=== PATIENT | male | born 1995 | race Caucasian/White ===

== ENCOUNTER 2021-12-02 07:22 | Emergency (ER) | payer OTHER ==
[2021-12-02 07:40] VITALS: BP 127/67; PULSE 98; RESP 16; TEMP 98.1; BMI 24.3
[2021-12-02 08:56] LABS: PH,URINE 5.5 (5.0-8.0); URINE APPEARANCE CLEAR; URINE BILIRUBIN NEGATIVE (NEGATIVE); URINE COLOR YELLOW; URINE GLUCOSE (UA) NEGATIVE (NEGATIVE); URINE KETONE 2+ (NEGATIVE); URINE LEUK ESTERASE NEGATIVE (NEGATIVE); URINE NITRITE NEGATIVE (NEGATIVE); URINE PROTEIN TRACE (NEGATIVE)
[2021-12-02] MEDS ORDERED: IBUPROFEN 600 MG TABLET (FP) PO ONE ×2 (09:26→09:29)
== END 2021-12-02 10:10 | disposition home or self-care (01) ==
LOC: JCOVINFU 07:22 → JER 07:22 → JCOVINFU 10:10
DX: R21 Rash and other nonspecific skin eruption (principal); B34.9 Viral infection, unspecified
CPT/HCPCS: 36415; 81003; 86780; 87086; 87491; 87591; 87593; 99283-25